=== PATIENT | male | born 1985 | race Caucasian/White ===

== ENCOUNTER 2021-08-24 20:01 | Emergency (ER) | payer BC ==
[~2021-08-24] VITALS: Ht 170.2 cm; Wt 110.4 kg
[2021-08-24 20:15] VITALS: BP 144/87
[2021-08-24] MEDS ORDERED: ZITHROMAX Z PA250 MG PO (21:57)
[2021-08-24] MEDS ORDERED: AMOXICILLIN 50500 MG PO (21:57)
== END 2021-08-24 22:19 | disposition home or self-care (01) ==
LOC: ED 20:01
DX: J18.9 Pneumonia, unspecified organism (principal); Z87.891 Personal history of nicotine dependence; Z20.822 Contact with and (suspected) exposure to COVID-19